=== PATIENT | female | born 1995 | race Caucasian/White ===

== ENCOUNTER 2024-12-15 22:57 | Emergency (ER) | payer OTHER, SELFPAY ==
[2024-12-15 22:58] VITALS: BP 140/84; PULSE 86; RESP 18; TEMP 36.4; O2SAT 100; BMI 23.9
--- NOTE | 2024-12-15 23:41 | EDS_ITS ---
HPI HPI - Psych History of Present Illness Chief Complaint: Mental Health Informant: patient and friend Onset/Context/Timing Onset: Month(s) Context: Gradual Onset Conflict: Family Timing: Continuous Current Severity: Moderate Maximum Severity: Moderate Associated Symptoms Associated Symptoms - Psych: Positive for Depressed Specific plan (suicidal thought): Denies specific plan. Narrative Narrative: 29-year-old female history of prior depression was on Zoloft but did not like taking the medication so stopped it. She has had issues with depression since 16 years old. When she was a minor she did have a mental health admission she believes to [facility] [place]. She is currently on no medications. Is not undergoing any psychiatric or mental health treatment. Currently has increased stress her are having marital issues and she is concerned they may be heading towards a divorce. She states she has had thoughts of suicide. No specific plan. Said she never would actually do it because she has 2 young children at home. She did have a prior overdose in 2013 where she took 60 aspirin but did not tell the truth and was not hospitalized for it. Denies any recent illness. Decreased oral intake. Prior similar symptoms: Yes Recent Illness/Hospitalization: No PFSH PFSH Home Medications ?Medication ?Instructions ?Recorded ?Last Taken ?Type NK 12/16/24 Unknown History Surgical History (Updated 12/16/24 @ 00:11 by Sherine Gimenez) Hx of tonsillectomy History of appendectomy Social History Smoking Status: Never smoker ROS ROS ED ROS Narrative Denies recent illness. Constitutional Constitutional ED: Denies chills or fever(s) Eyes Eyes: Denies blurry vision ENT ENT ED: Denies ear pain Cardiovascular Cardiovascular: Denies chest pain Respiratory/Chest Respiratory/Chest: Denies cough or dyspnea Gastrointestinal Gastrointestinal: Denies abdominal pain Genitourinary Genitourinary ED: Denies dysuria or hematuria Musculoskeletal Musculoskeletal: Denies arthralgias or back pain Integumentary Denies abscess or Abrasions Neurologic Neurologic: Denies headache(s) Psychiatric Psychiatric: Denies anxiety or depression Hematologic/Lymphatic Hematologic/Lymphatic: Denies easy bleeding, easy bruising or lymphadenopathy Allergic/Immunologic Allergic/Immunologic ED: Denies mouth swelling, tongue swelling or urticaria EXAM Physical Exam Narrative Exam Narrative: Well-appearing 29-year-old female. Sitting upright in bed. Vital signs are stable afebrile. No acute distress. No toxidrome. Did reportedly drink alcohol at night. H EENT exam unremarkable. Pupils round reactive light. No facial trauma. Normal speech. Neck nontender no lymphadenopathy. No signs of trauma. Lungs clear to auscultation bilaterally. Heart regular rhythm rate about 85 no murmur. Chest wall ribs nontender. Abdomen soft nontender. Moving all 4 extremities. Multiple tattoos on her arms. No track garcia. Normal strength. No lacerations. No scars. Moving both lower extremities. Nontender no edema. Back nontender. Neurologically she is awake alert. Answering questions following commands. No focal motor deficits. She does make eye contact. She is forthcoming with information. She does seem depressed. Const Vital Signs: 12/15/24 22:58 Temperature 97.5 F L Temperature Source Temporal Pulse Rate 86 Respiratory Rate 18 Blood Pressure 140/84 H Blood Pressure Mean 102 Pulse Ox 100 Oxygen Delivery Method Room Air Positive well nourished and well developed; Negative for obese, cachectic, contractures or unkempt General Appearance ED: well developed and NAD; Negative for unkempt, cachectic, contractures or pallor Nutritional Appearance: Negative for cachectic or obese HEENT Reports moist mucous membranes normocephalic and atraumatic Eyes PERRL and EOMs intact bilaterally Neck no lymphadenopathy, supple and no JVD Resp normal respiratory effort and clear to auscultation bilaterally Cardio S1 normal heart sound, S2 normal heart sound and no murmurs Rate: regular rate Rhythm: regular rhythm GI non-tender, non-distended and no masses Auscultation: normoactive bowel sounds Palpation: soft; Negative for tender, guarding, hepatomegaly or mass Back/Spine no CVA tenderness General Back: Negative for CVA tenderness Cervical Spine: Negative for cervical spine tenderness Thoracic Spine / Upper Back: Negative for thoracic spinal tenderness Lumbar Spine / Lower Back: Negative for lumbar spinal tenderness Coccyx: Negative for other Extremity normal to inspection General Extremety ED: Negative for edema or tenderness General Extremity: Negative for edema Neuro oriented x3 and CN's II-XII intact bilaterally Sensorium / Orientation: alert, oriented to person, oriented to place and oriented to time; Negative for orientation impaired, confused, lethargic or stuporous Motor Exam: strength 5/5 throughout Psych mental status grossly normal, thought process normal, cooperative, speech normal and activity/motor behavior normal; Negative for affect normal or denies suicidal ideation Appearance: grossly normal, appropriate and well kempt; Negative for unkempt, d isheveled, bizarre or intubated Attitude: calm, engaged, No paranoid, No withdrawn, No bizarre and No uncooperative Activity / Motor Behavior: appropriate eye contact Speech: normal speech Mood & Affect: depressed Thought Process: normal thought process Thought Content: normal thought content and suicidality Attention / Concentration: attention grossly intact and concentration grossly intact Memory / Cognition: memory grossly intact Insight: insight good Judgement: judgement good Skin General Skin Exam: Negative for jaundice or pallor Lesions: no lesions Rashes: no rashes Trauma: Negative for abrasion Wounds: Negative for amputation MDM MDM MDM Narrative Medical decision making narrative: 29-year-old female depressed suicidal thoughts. Denies a plan or that she would actually attempt due to having 2 small children. She had a prior overdose in 2013 that she did not tell the truth about was not admitted. At age 16 she had admission she believes [facility] for depression. 80 mental health labs. Crisis evaluation. Should be turned over to the overnight physician. Repeat exam patient is doing well at 12:47 PM. I discussed with her test results. They are awaiting a crisis evaluation. She will be turned over to the overnight physician. History & Record Review Discussion w/independent historian: Friend Lab Data Attestation: I reviewed the patient's lab results. Lab results narrative: CBC shows white count 8. H&H 12.8 and 36. Platelets 325. Electrolytes show gap 14. Normal BUN and creatinine. Glucose 108. Serum test negative. Urine tox screen positive for cannabis. Patient willingly admits to smoking marijuana. Alcohol is elevated at 123. Consistent with legal intoxication. Labs: Laboratory Results - last 24 hr 12/15/24 12/15/24 12/16/24 00:00 23:52 00:00 WBC 8.1 RBC 4.28 Hgb 12.8 Hct 36.6 L MCV 85.5 MCH 29.9 MCHC 35.0 RDW Std Deviation 41.7 RDW Coeff of Zander 13.2 Plt Count 325 MPV 8.2 Immature Gran % (Auto) 1.100 H Neut % (Auto) 70.9 H Lymph % (Auto) 22.3 Allen % (Auto) 3.9 Eos % (Auto) 1.2 Baso % (Auto) 0.6 Absolute Neuts (auto) 5.8 Absolute Lymphs (auto) 1.81 Nucleated RBC % 0 Sodium 143 Potassium 3.5 Chloride 109 H Carbon Dioxide 20.0 L Anion Gap 14 BUN 7 Creatinine 0.59 L Estim Creat Clear Calc 115.33 Est GFR (MDRD) Non-Af 124 BUN/Creatinine Ratio 12.5 Glucose 108 H Calcium 9.3 Serum , Qual NEGATIVE Urine Opiates Screen NEGATIVE U Buprenorphine Qual NEGATIVE Ur Oxycodone Screen NEGATIVE Urine Methadone Screen NEGATIVE Urine Fentanyl Screen NEGATIVE Ur Barbiturates Screen NEGATIVE Ur Phencyclidine Scrn NEGATIVE Ur Amphetamines Screen NEGATIVE U Benzodiazepines Scrn NEGATIVE Urine Cocaine Screen NEGATIVE U Cannabinoids Screen PRESUMPTIVE POSITIVE Ethyl Alcohol 123.0 H Discharge Plan Triage Chief Complaint: Mental Health ED Provider: Deniz Schmitz Dx/Rx/DC Orders Clinical Impression: Depression, Depression with suicidal ideation, Acute alcohol intoxication Prescriptions: No Action NK Primary Care Provider: Courtney Owen Print Language: Armenian
[2024-12-16 00:15] LABS: Amphetamine Urine NEGATIVE (<1000 ng/mL); Barbiturate Urine NEGATIVE (< 200 ng/mL); Benzodiazepine Urine NEGATIVE (< 200 ng/mL); Buprenorphine Urine NEGATIVE (< 200 ng/mL); Cocaine Urine NEGATIVE (< 300 ng/mL); Fentanyl, Urine NEGATIVE; Methadone Urine NEGATIVE (< 300 ng/mL); Opiates Urine NEGATIVE (< 300 ng/mL); Oxycodone, Urine NEGATIVE (< 100 ng/mL); PCP Urine NEGATIVE (< 25 ng/mL); THC Urine PRESUMPTIVE POSITIVE (< 50 ng/mL)
[2024-12-16 00:18] LABS: Absolute Lymphocyte Count 1.81 X10^3/uL (0.83-4.51); Absolute Neutrophil Count 5.8 X10^3/uL (2.0-7.7); Basophil# 0.05 X10^3/uL; Basophil% 0.6 % (0-1); Eosinophils% 1.2 % (0-5); Hematocrit 36.6 % (37-47); Hemoglobin 12.8 g/dL (12.0-15.0); Lymphocyte # 1.81 X10^3/ul (0.83-4.51); Lymphocyte % 22.3 % (19-41); Mean Corpuscular Hgb 29.9 pg (27.0-32.0); Mean Corpuscular Volume 85.5 fL (81-99); Mean Platelet Vol. 8.2 fl (6.2-12.0); Monocyte# 0.32 X10^3/uL; Monocyte% 3.9 % (0-10); NRBC Flagged by Analyzer 0 % (0-5); Neutrophil # 5.76 X10^3/uL (2.7-7.7); Neutrophil % 70.9 % (47-70); Platelet Count 325 K/mm3 (150-450); RBC Distribution Width CV 13.2 % (11.6-14.6); RBC Distribution Width SD 41.7 fl (35.1-43.9); Red Blood Count 4.28 M/mm3 (4.2-5.4); White Blood Count 8.1 K/mm3 (4.4-11.0)
[2024-12-16 00:24] LABS: Internal QC Validated? YES +Cl - CLEAR BKGD; Pregnancy, Serum, hCG Quali. NEGATIVE Negative
[2024-12-16 00:29] LABS: Anion Gap 14 (5-15); BUN 7 mg/dL (4-19); BUN/Creat Ratio 12.5 RATIO (10-20); Calcium,Total 9.3 mg/dL (7.6-11.0); Chloride 109 mmol/L (98-108); Creatinine, Serum 0.59 mg/dL (0.70-1.20); EST Glomerular Filtration Rate 124 (>60); Estimated Creatinine Clearance 115.33 ml/min (50-250); Glucose 108 mg/dL (70-99); Potassium 3.5 mmol/L (3.3-5.1); Sodium Level 143 mmol/L (133-145)
[2024-12-16 02:30] VITALS: PULSE 81; RESP 20; TEMP 36.3; O2SAT 99
== END 2024-12-16 02:31 | disposition home or self-care (01) ==
PROVIDERS: Emergency Provider Emergency Medicine; PCP General Practice; Visit Provider Emergency Medicine
DX: F32.A Depression, unspecified (principal); F10.129 Alcohol abuse with intoxication, unspecified; R45.851 Suicidal ideations; Z63.8 Other specified problems related to primary support group; Z79.899 Other long term (current) drug therapy
CPT/HCPCS: 80048; 80307; 82077; 84703; 85025; 99284